=== PATIENT | female | born 1960 ===

== ENCOUNTER 2021-02-09 07:45 | Inpatient (IN) | payer OTHER ==
[~2021-02-09] VITALS: Ht 139.7 cm; Wt 88.5 kg
[2021-02-10] MEDS ORDERED: MELOXICAM15 MG PO (15:53)
[2021-02-10] MEDS ORDERED: COZAAR25 MG PO (15:53)
[2021-02-10] MEDS ORDERED: SYMBICORT 16010.2 GM IH (15:54)
[2021-02-10] MEDS ORDERED: CENTRUM ADULTS1 EACH PO (15:54)
[2021-02-10] MEDS ORDERED: OMEGA 3 500 SO1 EACH PO (15:55)
[2021-02-10] MEDS ORDERED: VITAMIN D31 ML MC (15:55)
[2021-02-10] MEDS ORDERED: VITAMIN D3 PO (15:56)
[2021-02-10] MEDS ORDERED: LATANOPROST (15:57)
[2021-02-11] MEDS ORDERED: LATANOPROST2.5 ML (13:07)
[2021-02-11] MEDS ORDERED: DORZOLAMIDE HCL10 ML (13:07)
== END 2021-02-13 13:14 | disposition home or self-care (01) | DRG 741 ==
LOC: OB/GYN 02-11 06:44 → O/R 02-11 06:44 → OB/GYN 02-11 06:45 → EDBD 02-11 12:30 → OB/GYN 02-11 13:49
PROVIDERS: ADMIT Specialist; ATTEND Specialist
PROC: 0UT2FZZ Resection of Bilateral Ovaries, Via Natural or Artificial Opening With Percutaneous Endoscopic Assistance (ICD-10-PCS; 2021-02-11)
PROC: 0UT7FZZ Resection of Bilateral Fallopian Tubes, Via Natural or Artificial Opening With Percutaneous Endoscopic Assistance (ICD-10-PCS; 2021-02-11)
PROC: 07BC4ZZ Excision of Pelvis Lymphatic, Percutaneous Endoscopic Approach (ICD-10-PCS; 2021-02-11)
PROC: 0UT9FZZ Resection of Uterus, Via Natural or Artificial Opening With Percutaneous Endoscopic Assistance (ICD-10-PCS; principal; 2021-02-11 06:45)
DX: C54.1 Malignant neoplasm of endometrium (principal)